=== PATIENT | female | born 1960 | race African-American/Black ===

== ENCOUNTER 2017-04-09 16:13 | Outpatient (CLI) | payer BC ==
--- NOTE | 2017-04-09 17:47 | RAD ---
LEFT HIP TWO VIEWS: History: Left hip pain. FINDINGS: Femoral head contour is normally maintained. No fracture. No osseous lesions seen. IMPRESSION: No acute abnormality. POS: DARBY
== END 2017-04-09 16:14 | disposition home or self-care (01) ==
LOC: SCSRAD 16:13
PROVIDERS: ATTEND Family Medicine
DX: M25.552 Pain in left hip (principal)

== ENCOUNTER 2018-01-03 14:48 | Outpatient (CLI) | payer BC | END 2018-01-03 14:49 | disposition home or self-care (01) | LOC: BICMAMMO 14:48 | PROVIDERS: ATTEND Obstetrics & Gynecology | DX: Z12.31 Encounter for screening mammogram for malignant neoplasm of breast (principal) | CPT/HCPCS: 77063; 77067 ==

== ENCOUNTER 2018-03-22 13:16 | Outpatient (CLI) | payer BC ==
[2018-03-22 13:56] LABS: #Eosinphils 0.3 thou/uL (0.0-0.7); #Monocytes 0.5 thou/uL (0.11-0.59); #Neutrophils 3.4 thou/uL (1.40-6.50); %Basophils 0.3 % (0.0-1.0); %Eosinophils 4.4 % (0.0-10.0); %Lymphocytes 41.7 % (21.0-51.0); %Monocytes 6.9 % (0.0-10.0); %Neutrophils 46.7 % (42.0-75.0); Hemoglobin 11.8 g/dL (12.0-16.0); Mean Corpuscular HGB CONC 30.5 g/dL (32.0-36.0); Mean Corpuscular Volume 75.5 fL (78.0-98.0); Mean Platelet Volume 8.2 fL (7.4-10.4); Platelet Count 324 thou/uL (130-400); RBC Distribution Width 14.7 % (11.5-14.5); Red Blood Cell (RBC) Count 5.13 mill/uL (4.20-5.40); White Blood Cell (WBC) Count 7.3 thou/uL (4.8-10.8)
[2018-03-22 14:07] LABS: Bilirubin Negative (Negative); Blood, Urine Negative (Negative); Clarity CLEAR (Clear); Glucose, Urine (Dipstick) Negative (Negative); Leukocyte Negative (Negative); Nitrite Negative (Negative); Protein, Urine (Dipstick) Negative (Neg-Trace); Specific Gravity, Urine 1.028 (1.002-1.036); Urobilinogen 0.2 mg/dL (0.2-1.0)
[2018-03-22 14:10] LABS: Bacteria/HPF 1+ HPF (None Seen); Hyaline Casts/LPF 4-6 HYALINE CAST LPF (0-3 Hyaline); Pathc Cast-AUWi Flag 1.01 (0-2.49); WBC/HPF 0-3 HPF (0-3)
[2018-03-22 14:15] LABS: RBC/HPF None Seen HPF (0-3)
== END 2018-03-22 13:17 | disposition home or self-care (01) ==
LOC: LABBT 13:16
PROVIDERS: ATTEND Orthopaedic Surgery Hand Surgery
DX: Z01.812 Encounter for preprocedural laboratory examination (principal); G56.01 Carpal tunnel syndrome, right upper limb
CPT/HCPCS: 81001; 85025

== ENCOUNTER 2018-04-02 07:35 | Day surgery (SDC) | payer BC ==
[2018-03-22 13:30] VITALS: BMI 35.3
[2018-04-02] MEDS ORDERED: CEFAZOLIN/Water 2 GM/20 ML SYRINGE ONE (08:02)
[2018-04-02] MEDS ORDERED: Bupivacaine PF 0.5% 30 ML VIAL ONE (12:02)
[2018-04-02] MEDS ORDERED: Betamet Acet/Betamet Na Ph 30 MG/5 ML VIAL ONE (12:02)
[2018-04-02] MEDS ORDERED: Bacitracin Zinc Ointment 30 gm TUBE ONE (12:02)
[2018-04-02] MEDS ORDERED: Meperidine HCl/PF 25 MG/ML VIAL ONE (12:11)
[2018-04-02] MEDS ORDERED: Famotidine/PF 20 mg/2ml Vial ONE (12:11)
[2018-04-02] MEDS ORDERED: Fentanyl 100 MCG/2 ML VIAL ONE (12:11)
[2018-04-02] MEDS ORDERED: Lidocaine 1% PF 5 ML VIAL ONE (13:22)
[2018-04-02] MEDS ORDERED: PROPOFOL 200 MG/20 ML VIAL ONE (13:22)
[2018-04-02] MEDS ORDERED: Dexamethasone 20 MG/5 ML VIAL ONE (13:22)
[2018-04-02] MEDS ORDERED: Ketorolac Tromethamine 30 MG/ML VIAL ONE (13:33)
[2018-04-02] MEDS ORDERED: HYDROcodone/Acetaminophen 5/325 mg Tablet ONE (15:35)
--- NOTE | 2018-04-02 22:25 | OP ---
DATE OF PROCEDURE: 04/02/2018 SURGEON: Diego Harris M.D. ANESTHESIA: HORACIO Tellez, Stateless Anesthesia. COMPLICATIONS: None. PREOPERATIVE DIAGNOSIS: Right carpal tunnel syndrome. POSTOPERATIVE DIAGNOSES: Right carpal tunnel syndrome with mild early median nerve in the midd le central canal with tight transcarpal ligament. PROCEDURE PERFORMED: 1. Right carpal tunnel release. 2. injection into the carpal tunnel area. DESCRIPTION OF PROCEDURE: After successful general LMA technique, the limb was prepped and draped. Timeout was done appropriately. We then gained 15 mL of 0.5% Marcaine subcutaneously at the site of the incision and all areas with tunneling or direct traction visualization will be accomplished. We then exsanguinated the limb, inflated tourniquet to 250 mmHg pressure. Incision outlined and centere d on the ring finger with medial, lateral, and far distal as Hgaan's cardinal lines were approximate ly 5 mm distal to volar flexion crease. Incision was developed through skin and subcutaneous tissue with sharp 11 blade knife and a Crisp blade was used to begun dissection over the transcarpal ligame nt. We began progressive retraction, and then once visualized the center portion of transcarpal liga ment from head distally released it. No nerves were violated. The patient had a type 1 motor branch takeoff. Then, from the midportion proximally dissected subcutaneous tissue, visualized and very th ick transcarpal ligament and made a direct release using primarily a Crisp blade with the last 5 mm being released by tenotomy scissor. We placed 3 mL Celestone in the nerve, moved the finger, and noticed the stippling and then prepared for closure. Tourniquet had been deflated, and the patient had no other wounds. We reobtained hemostasis, closed the wound with interrupted 4-0 nylon in a mattress pattern. I injec primitivo the remainder of the 30 mL of 0.5% Marcaine with epinephrine. The patient left the operating ida m without evidence of anesthetic or operative complication.
== END 2018-04-02 16:15 | disposition home or self-care (01) ==
LOC: SDC 07:35
PROVIDERS: ATTEND Orthopaedic Surgery Hand Surgery
PROC: 01N50ZZ Release Median Nerve, Open Approach (ICD-10-PCS; principal; 2018-04-02)
DX: G56.01 Carpal tunnel syndrome, right upper limb (principal); Z79.899 Other long term (current) drug therapy
CPT/HCPCS: 96374; J0131; J0702; J1100; J1885; J2001; J2175; J2704; J3010; S0020; S0028

== ENCOUNTER 2019-03-27 09:41 | Outpatient (CLI) | payer BC ==
[2019-03-27 15:14] LABS: #Basophils 0.1 thou/uL (0.0-0.2); #Eosinphils 0.1 thou/uL (0.0-0.7); #Lymphocytes 2.5 thou/uL (1.20-3.40); #Monocytes 0.7 thou/uL (0.11-0.59); %Basophils 0.9 % (0.0-1.0); %Eosinophils 1.4 % (0.0-10.0); %Lymphocytes 26.3 % (21.0-51.0); %Monocytes 7.7 % (0.0-10.0); %Neutrophils 63.7 % (42.0-75.0); Hemoglobin 12.6 g/dL (12.0-16.0); Mean Corpuscular HGB CONC 31.1 g/dL (32.0-36.0); Mean Corpuscular Hemoglobin 23.5 pg (27.0-31.0); Mean Corpuscular Volume 75.5 fL (78.0-98.0); Mean Platelet Volume 8.2 fL (7.4-10.4); Platelet Count 335 thou/uL (130-400); RBC Distribution Width 15.2 % (11.5-14.5); Red Blood Cell (RBC) Count 5.39 mill/uL (4.20-5.40); White Blood Cell (WBC) Count 9.4 thou/uL (4.8-10.8)
--- NOTE | 2019-03-27 20:45 | EKG ---
Test Reason : Blood Pressure : / mmHG Vent. Rate : 072 BPM Atrial Rate : 072 BPM P-R Int : 146 ms QRS Dur : 106 ms QT Int : 398 ms P-R-T Axes : 042 056 053 degrees QTc Int : 435 ms Normal sinus rhythm Normal ECG No previous ECGs available Confirmed by NEHA COFFEY, DR. Rizzo ([id number]) on 03/27/2019 8:45:15 PM Referred By: MARRY Confirmed By:DR. Matthias SOLOMON MD
== END 2019-03-27 09:42 | disposition home or self-care (01) ==
LOC: LABBT 09:41
PROVIDERS: ATTEND Orthopaedic Surgery Hand Surgery
DX: Z01.818 Encounter for other preprocedural examination (principal); M65.311 Trigger thumb, right thumb
CPT/HCPCS: 85025; 93005; 93010

== ENCOUNTER 2019-04-01 09:17 | Day surgery (SDC) | payer BC ==
[2019-03-27 14:22] VITALS: BMI 36.9
[2019-04-01] MEDS ORDERED: Betamet Acet/Betamet Na Ph 30 MG/5 ML VIAL ONE (10:42)
[2019-04-01] MEDS ORDERED: Bupivacaine PF 0.5% 30 ML VIAL ONE (10:42)
[2019-04-01] MEDS ORDERED: Bacitracin Zinc Ointment 30 gm TUBE ONE (10:43)
[2019-04-01] MEDS ORDERED: Sodium Chloride 0.9% 10 ML ONE (10:43)
[2019-04-01] MEDS ORDERED: Midazolam HCl 2 mg/2 ml Vial ONE ×2 (10:52→10:55)
[2019-04-01] MEDS ORDERED: Fentanyl 100 MCG/2 ML VIAL ONE ×2 (10:55→12:25)
[2019-04-01] MEDS ORDERED: Dexamethasone 20 MG/5 ML VIAL ONE (11:52)
[2019-04-01] MEDS ORDERED: PROPOFOL 200 MG/20 ML VIAL ONE (11:52)
[2019-04-01] MEDS ORDERED: Ondansetron PF 4 MG/2 ML Vial ONE (11:52)
[2019-04-01] MEDS ORDERED: Ketorolac Tromethamine 30 MG/ML VIAL ONE (11:52)
--- NOTE | 2019-04-01 18:26 | OP ---
DATE OF PROCEDURE: 04/01/2019 PREOPERATIVE DIAGNOSIS: Right thumb A1 charis adhesion with triggering. POSTOPERATIVE DIAGNOSIS: Right thumb A1 charis adhesion with triggering. PROCEDURES PERFORMED: Right thumb A1 charis release. TOURNIQUET TIME: 12 minutes. ESTIMATED BLOOD LOSS: Less than 5 mL. INJECTABLES: Yes, 20 mL of 0.5% Marcaine, bennett-incisional field block, 10 given before the incision, 10 after incision was closed. SPECIMEN: To the lab, none. DESCRIPTION OF PROCEDURE: After successful general LMA technique by [place]est[facility], the limb was prepped and draped. We then gave the first 10 mL of Marcaine before we made an incision. We searched the small area and immediately found a very tight A1 charis deep to the neuroplasty nerves and the A1 charis was released in midline with Buckland blade. We then placed 2 mL Celestone in the wound, let it remained there for 3 minutes and then released the tourniquet completely. We were able to close the wound with interrupted 4-0 nylon x4 sutures and there was no evidence of anesthetic or operative complication. The patient had tourniquet deflated without complication and the wound was closed, a bulky dressing was applied, and she left the operating room without evidence of anesthetic or operative complication. Job ID: [id number]
== END 2019-04-01 14:47 | disposition home or self-care (01) ==
LOC: SDC 09:17
PROVIDERS: ATTEND Orthopaedic Surgery Hand Surgery
PROC: 0LN70ZZ Release Right Hand Tendon, Open Approach (ICD-10-PCS; principal; 2019-04-01)
DX: M65.311 Trigger thumb, right thumb (principal); K21.9 Gastro-esophageal reflux disease without esophagitis; Z79.899 Other long term (current) drug therapy
CPT/HCPCS: J0690; J0702; J1100; J1885; J2250; J2405; J2704; J3010; J3490; S0020

== ENCOUNTER 2019-05-12 14:25 | Outpatient (CLI) | payer BC ==
--- NOTE | 2019-05-12 15:46 | MMO ---
Bilateral MAMMO Bilat Screen [facility]. CLINICAL HISTORY: Patient is 58 years old and is seen for screening. The patient has no family history of breast cancer. The patient has no personal history of cancer. VIEWS: The views performed were: bilateral craniocaudal with tomosynthesis and bilateral mediolateral oblique with tomosynthesis. FILMS COMPARED: The present examination has been compared to prior imaging studies performed at [facility] on 06/10/2014, 06/14/2015, 10/17/2016 and 01/03/2018. This study has been interpreted with the assistance of computer-aided detection. MAMMOGRAM FINDINGS: The breasts are heterogeneously dense, which could obscure a lesion on mammography. There are no suspicious masses, suspicious calcifications, or new areas of architectural distortion. IMPRESSION: THERE IS NO MAMMOGRAPHIC EVIDENCE OF MALIGNANCY. A ROUTINE FOLLOW-UP MAMMOGRAM IN 1 YEAR IS RECOMMENDED. THE RESULTS OF THIS EXAM WERE SENT TO THE PATIENT. ACR BI-RADS Category 1 - Negative MAMMOGRAPHY NOTE: 1. A negative mammogram report should not delay a biopsy if a dominant of clinically suspicious mass is present. 2. Approximately 10% to 15% of breast cancers are not detected by mammography. 3. Adenosis and dense breasts may obscure an underlying neoplasm. Reported by: Caryn WHIPPLE Electonically Signed: [id number]
== END 2019-05-12 14:26 | disposition home or self-care (01) ==
LOC: BICMAMMO 14:25
PROVIDERS: ATTEND Obstetrics & Gynecology
DX: Z12.31 Encounter for screening mammogram for malignant neoplasm of breast (principal)
CPT/HCPCS: 77063; 77067

== ENCOUNTER 2020-08-25 12:20 | Outpatient (CLI) | payer BC ==
--- NOTE | 2020-08-25 13:24 | MMO ---
Bilateral MAMMO Bilat Screen [facility]Y. CLINICAL HISTORY: Patient is 59 years old and is seen for screening. The patient has no family history of breast cancer. The patient has no personal history of cancer. VIEWS: The views performed were: bilateral craniocaudal with tomosynthesis and bilateral mediolateral oblique with tomosynthesis. FILMS COMPARED: The present examination has been compared to prior imaging studies performed at [facility] on 06/14/2015, 10/17/2016, 01/03/2018 and 05/12/2019. This study has been interpreted with the assistance of computer-aided detection. MAMMOGRAM FINDINGS: The breasts are heterogeneously dense, which could obscure a lesion on mammography. There are stable benign appearing calcifications seen in both breasts. Nodularity is stable. There are no suspicious masses, suspicious calcifications, or new areas of architectural distortion. IMPRESSION: THERE IS NO MAMMOGRAPHIC EVIDENCE OF MALIGNANCY. A ROUTINE FOLLOW-UP MAMMOGRAM IN 1 YEAR IS RECOMMENDED. THE RESULTS OF THIS EXAM WERE SENT TO THE PATIENT. ACR BI-RADS Category 2 - Benign finding MAMMOGRAPHY NOTE: 1. A negative mammogram report should not delay a biopsy if a dominant of clinically suspicious mass is present. 2. Approximately 10% to 15% of breast cancers are not detected by mammography. 3. Adenosis and dense breasts may obscure an underlying neoplasm. Reported by: JOSEPH JACKSON MD Electonically Signed: [id number]
== END 2020-08-25 12:21 | disposition home or self-care (01) ==
LOC: BICMAMMO 12:20
PROVIDERS: ATTEND Family Medicine
DX: Z12.31 Encounter for screening mammogram for malignant neoplasm of breast (principal)
CPT/HCPCS: 77063; 77067

== ENCOUNTER 2021-04-15 14:25 | Outpatient (CLI) | payer BC | END 2021-04-15 14:26 | disposition home or self-care (01) | LOC: ULT 14:25 | PROVIDERS: ATTEND Family Medicine | DX: R10.9 Unspecified abdominal pain (principal) | CPT/HCPCS: 76770 ==

== ENCOUNTER 2021-08-02 13:27 | Outpatient (CLI) | payer BC ==
[2021-08-02 15:01] LABS: #Eosinphils 0.2 10x3/uL (0.0-0.5); #Monocytes 0.5 10x3/uL (0.0-1.1); #Neutrophils 3.2 10x3/uL (1.5-8.4); %Basophils 0.1 % (0.0-2.0); %Eosinophils 3.2 % (0.0-6.0); %Lymphocytes 43.6 % (18.0-47.0); %Monocytes 6.7 % (0.0-10.0); %Neutrophils 46.3 % (40.0-75.0); Hemoglobin 11.8 g/dL (12.0-15.5); Mean Corpuscular Hemoglobin 23.6 pg (27.0-33.0); Mean Corpuscular Volume 78.8 fl (81.6-98.3); Mean Platelet Volume 10.2 fl (7.4-10.4); Platelet Count 307 10x3/uL (150-450); RBC Distribution Width 15.9 % (11.5-14.5); Red Blood Cell (RBC) Count 4.99 10x6/uL (3.90-5.03); White Blood Cell (WBC) Count 6.9 10x3/uL (3.5-10.5)
[2021-08-03 00:04] LABS: SARS-CoV-2 PCR by NAA Not Detected (NotDetected)
== END 2021-08-02 13:28 | disposition home or self-care (01) ==
LOC: LABBT 13:27
PROVIDERS: ATTEND Orthopaedic Surgery Hand Surgery
DX: Z01.818 Encounter for other preprocedural examination (principal); G56.02 Carpal tunnel syndrome, left upper limb
CPT/HCPCS: 85025; 93005; 93010; U0003; U0005

== ENCOUNTER 2021-08-05 05:40 | Day surgery (SDC) | payer BC ==
[2021-07-27 15:29] VITALS: BMI 37.8
[2021-08-05] MEDS ORDERED: Bupivacaine PF 0.5% 30 ML VIAL ONE (06:21)
[2021-08-05] MEDS ORDERED: Betamet Acet/Betamet Na Ph 30 MG/5 ML VIAL ONE (06:21)
[2021-08-05] MEDS ORDERED: Bacitracin Zinc Ointment 30 gm TUBE ONE (06:21)
[2021-08-05] MEDS ORDERED: Fentanyl 250 MCG/5 ML VIAL ONE (06:31)
[2021-08-05] MEDS ORDERED: ceFAZolin 2 GM/Dextrose 50 ML IVPB ONE (07:03)
[2021-08-05] MEDS ORDERED: ePHEDrine 50 MG/ML VIAL ONE (07:16)
[2021-08-05] MEDS ORDERED: Ondansetron PF 4 MG/2 ML Vial ONE (07:16)
[2021-08-05] MEDS ORDERED: Lidocaine 1% PF 5 ML VIAL ONE (07:16)
[2021-08-05] MEDS ORDERED: Dexamethasone 20 MG/5 ML VIAL ONE (07:16)
[2021-08-05] MEDS ORDERED: PROPOFOL 200 MG/20 ML VIAL ONE (07:16)
[2021-08-05] MEDS ORDERED: Ketorolac Tromethamine 30 MG/ML VIAL ONE (08:21)
== END 2021-08-05 09:51 | disposition home or self-care (01) ==
LOC: SDC 05:40
PROVIDERS: ATTEND Orthopaedic Surgery Hand Surgery
PROC: 01N50ZZ Release Median Nerve, Open Approach (ICD-10-PCS; principal; 2021-08-05)
DX: G56.22 Lesion of ulnar nerve, left upper limb (principal); K21.9 Gastro-esophageal reflux disease without esophagitis; Z79.899 Other long term (current) drug therapy
CPT/HCPCS: J0690; J0702; J1885; J3010; S0020

== ENCOUNTER 2022-01-11 10:29 | Outpatient (CLI) | payer BC | END 2022-01-11 10:30 | disposition home or self-care (01) | LOC: SCSRAD 10:29 | PROVIDERS: ATTEND Family Medicine | DX: M54.42 Lumbago with sciatica, left side (principal); M54.9 Dorsalgia, unspecified; M47.816 Spondylosis without myelopathy or radiculopathy, lumbar region | CPT/HCPCS: 72100 ==

== ENCOUNTER 2022-10-12 14:28 | Outpatient (CLI) | payer BC | END 2022-10-12 14:29 | disposition home or self-care (01) | LOC: BICMAMMO 14:28 | PROVIDERS: ATTEND Family Medicine | DX: Z12.31 Encounter for screening mammogram for malignant neoplasm of breast (principal); N63.20 Unspecified lump in the left breast, unspecified quadrant | CPT/HCPCS: 77063; 77067 ==

== ENCOUNTER 2023-10-31 10:38 | Outpatient (CLI) | payer BC | END 2023-10-31 10:39 | disposition home or self-care (01) | LOC: ULT 10:38 | PROVIDERS: ATTEND Family Medicine | DX: R10.11 Right upper quadrant pain (principal) | CPT/HCPCS: 76705 ==

== ENCOUNTER 2023-11-15 14:11 | Outpatient (CLI) | payer BC | END 2023-11-15 14:12 | disposition home or self-care (01) | LOC: BICMAMMO 14:11 | PROVIDERS: ATTEND Family Medicine | DX: Z12.31 Encounter for screening mammogram for malignant neoplasm of breast (principal) | CPT/HCPCS: 77063; 77067 ==